=== PATIENT | male | born 1955 | race Caucasian/White ===

== ENCOUNTER 2017-04-28 08:56 | Day surgery (SDC) | payer BC ==
[2017-04-21 17:07] VITALS: BMI 25.7
[~2017-04-28 08:56] MED LIST: LACTATED RINGERS 1,000 ML IV SCH; MOXIFLOXACIN HCL 0.5% DROPS 3 ML BTL OP ONE; ONDANSETRON 4 MG/2 ML VIAL IVP PRN; TETRACAINE 0.5% OPHTH (PF) DROPS 4 ML BTL OP ONE; TIMOLOL 0.5% OPHTH SOLN (PF) 0.2 ML DROPERETTE OP ONE
[2017-04-28 09:21] VITALS: RESP 16; TEMP 98
[2017-04-28] MEDS ORDERED: LIDOCAINE 1% 20 ML VIAL (10MG/ML) FOR IV START INTRADERMA ONE (09:31)
[2017-04-28] MEDS: CYCLOPENTOLATE 1% OPHTH SOLN 2 ML BTL OP ONE ×3 (09:32→09:44)
[2017-04-28] MEDS: PHENYLEPHRINE 2.5% OPHTH DRP 2ML OP NR ×3 (09:35→09:47)
[2017-04-28] MEDS ORDERED: HYALURONATE SODIUM INTRAOCULAR 1 EACH SYRINGE (12MG/ML) INTRAOCULA ONE (10:14)
[2017-04-28] MEDS ORDERED: BALANCED SALT IRRIG SOLN COMB2 15 ML IRRIG.SOLN INTRAOCULA ONE (10:15)
[2017-04-28] MEDS ORDERED: LIDOCAINE 1% (PF) 10MG/ML VIAL SQ ONE (10:15)
[2017-04-28] MEDS ORDERED: fentaNYL (PF) 50 MCG/ML 2 ML AMP ONE (10:24)
[2017-04-28] MEDS ORDERED: MIDAZOLAM 2 MG/2 ML VIAL ONE (10:24)
[2017-04-28] MEDS ORDERED: EPINEPHrine (PF) 0.3 ML in BALANCED SALT IRRIG SOLN COMB2 500 ML IRRIGATION ONE (10:52)
--- NOTE | 2017-04-28 10:56 | P.OP ---
Date of Procedure: 04/28/17 Preoperative Diagnosis: POAG mild stg & NS Postoperative Diagnosis: same Procedure(s) Performed: PIOL & iStent OS Implants: PCB00 20.50 & iStent GTS 100L Anesthesia: MAC Surgeon: Richy Lopez Estimated Blood Loss (ml): 0 Pathology: none sent Condition: stable Disposition: same day Indications for Procedure: blurry vision and glaucoma Operative Findings: no complications
[2017-04-28 11:34] VITALS: BP 105/64; PULSE 60
--- NOTE | 2017-04-28 18:57 | OP ---
OPERATIVE REPORT PROCEDURE: Phacoemulsification of cataract and intraocular lens implant of the left eye with eye stent implantation of the left eye. PREOPERATIVE DIAGNOSIS: Nuclear sclerosis and primary open-angle glaucoma, mild stage. POSTOPERATIVE DIAGNOSES: Nuclear sclerosis and primary open-angle glaucoma, mild stage. SURGEON: Dr. Richy Lopez. ANESTHESIA: Topical. ESTIMATED BLOOD LOSS: None. SPECIMEN TAKEN: None. NARRATIVE: After obtaining the appropriate consent, the patient was brought to the operating room, there he was placed on cardiac monitoring, prepped and draped in the usual sterile manner. He was approached from his left temporal side. At the 5 o'clock position, an MVR blade was used to create a paracentesis port. Through this opening 1% Xylocaine MPF 50/50 mixed with balanced salt solution was injected into the anterior chamber. This was followed by stabilization of the anterior chamber with Viscoat. At the 3 o'clock position, a 2.5 mm keratome was used to create a self- sealing corneal flap incision in Langerman's fashion. Additional Viscoat was placed on the patient's cornea. His head was rotated rotated approximately 45 degrees to his right eye and a [place] prism was placed on the eye to examine the trabecular meshwork. There was no difficulty identifying it. Therefore, a [employer] One[employer] model GTS 100L stent was then passed across the anterior chamber and placed into the trabecular meshwork without difficulty. The patient was then returned to the normal supine position and a cystotome was used to start a continuous tear capsulorrhexis which was completed using the Utrata forceps. Hydrodissection and hydrodelineation of the lens was accomplished with balanced salt solution. Phacoemulsification lens utilizing phaco chop was accomplished 2195 seconds at 7% power. Additional Xylocaine MPF was instilled into the anterior chamber. This was followed by removal of the remaining cortex from the capsular bag along with careful polishing of the posterior capsule. Additional Provisc was used to stabilize the capsular bag and an RAFAELA PCB00, 20.5 diopter posterior chamber intraocular lens was then injected into the capsular bag without difficulty. The remaining viscoelastic was then removed from in and around the intraocular lens as well as the anterior chamber and the eye was brought to normal intraocular pressure through the paracentesis port with balanced salt solution. The incisions were confirmed watertight. He then received 2 drops of 0.5% timolol followed by 2 drops of Vigamox, was then lightly patched and shielded in the usual manner. There were no complications from the procedure. He tolerated the procedure well, was returned to outpatient recovery in good condition. MMCOLETTE / LETITIAN: [id number] /
== END 2017-04-28 11:59 | disposition home or self-care (01) ==
LOC: OR 08:56
PROVIDERS: ATTEND Ophthalmology
DX: H25.12 Age-related nuclear cataract, left eye (principal); H40.1131 Primary open-angle glaucoma, bilateral, mild stage; H53.10 Unspecified subjective visual disturbances; H40.039 Anatomical narrow angle, unspecified eye; H00.029 Hordeolum internum unspecified eye, unspecified eyelid; H52.03 Hypermetropia, bilateral; H52.223 Regular astigmatism, bilateral; H52.4 Presbyopia; Z96.1 Presence of intraocular lens; Z79.899 Other long term (current) drug therapy; Z72.0 Tobacco use
CPT/HCPCS: 0191T; 66984

== ENCOUNTER 2017-08-11 11:27 | Day surgery (SDC) | payer BC ==
[2017-08-04 14:02] VITALS: BMI 25.7
[~2017-08-11 11:27] MED LIST changes: -ONDANSETRON 4 MG/2 ML VIAL IVP PRN; -TIMOLOL 0.5% OPHTH SOLN (PF) 0.2 ML DROPERETTE OP ONE; +prednisoLONE ACETATE 1% OPHTH DROPS 5 ML BTL BOTH EYES ONE
[2017-08-11] MEDS: PILOCARPINE 2% OPHTH DROPS 15 ML BTL OP ONE ×3 (12:25→12:40)
[2017-08-11 12:41] VITALS: RESP 16; TEMP 98.3
[2017-08-11] MEDS ORDERED: LIDOCAINE 1% 20 ML VIAL (10MG/ML) FOR IV START INTRADERMA ONE (12:45)
[2017-08-11] MEDS ORDERED: fentaNYL (PF) 50 MCG/ML 2 ML AMP ONE (14:24)
[2017-08-11] MEDS ORDERED: MIDAZOLAM 2 MG/2 ML VIAL ONE (14:24)
[2017-08-11] MEDS ORDERED: TETRACAINE 0.5% OPHTH (PF) DROPS 4 ML BTL RIGHT EYE ONE (14:34)
[2017-08-11] MEDS ORDERED: LIDOCAINE 1% (PF) 10MG/ML VIAL MISCELLANE ONE (14:42)
[2017-08-11] MEDS ORDERED: ACETYLCHOLINE CHLORIDE 10 MG/ML 2 ML KIT INTRAOCULA ONE (14:49)
[2017-08-11] MEDS ORDERED: FLUORESCEIN STRIPS 1 MG STRIP RIGHT EYE ONE (14:52)
--- NOTE | 2017-08-11 14:59 | P.OP ---
Date of Procedure: 08/11/17 Preoperative Diagnosis: synechia right eye Postoperative Diagnosis: same Procedure(s) Performed: synechyolsis right eye Implants: none Anesthesia: MAC Surgeon: Richy Lopez Estimated Blood Loss (ml): 0 Pathology: none sent Condition: stable Disposition: same day Indications for Procedure: synechyial attachment to cornea Operative Findings: no complications
[2017-08-11 15:26] VITALS: BP 118/75; PULSE 68
--- NOTE | 2017-08-11 21:47 | OP ---
OPERATIVE REPORT DATE OF SURGERY: August 11, 2017. PROCEDURE: Synechiae lysis of the right eye. 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 SURGEONS: Dr. Richy Lopez. ANESTHESIA: Topical. ESTIMATED BLOOD LOSS: Is none. SPECIMEN: Taken none. NARRATIVE: After obtaining the appropriate consent, the patient was brought to the operating room. There he was placed on cardiac monitoring, prepped and draped in the usual sterile manner. In April of 2017, this patient underwent uncomplicated cataract extraction with intraocular lens implantation of his right eye. In June or early July while weaning off of the glaucoma medications, it was identified that there was an attachment of the iris to the internal incision of the patient's cornea from the previous cataract surgery. Because of the long-term concern with uveitis and glaucoma and possible hemorrhage, it was deemed necessary to break this synechiae because it was definitely causing enough tension to cause a peaked pupil in his eye. The patient denied any glare symptoms. However, long-term concerns were paramount. Therefore, he was brought to surgery today to break this point of attachment. He was approached from his right temporal side and at the 11 o'clock position as well as the 4 o'clock position of his eye, an MVR blade was used to create a paracentesis port. Through the 11 o'clock position, Xylocaine MPF 50 50 mix of balanced salt solution was injected into the anterior chamber. Initially using a Sinskey hook to reach across to the synechiae which was approximately 8 o'clock in the eye on the inferior edge of the temporal previously placed temporal incision, the Sinskey hook was then used to free the bound tissue to the underside of the cornea. The approach was taken from both the 5 o'clock position on the patient's cornea as well as the 11 o'clock position. The tissue proved to be somewhat more adherent than anticipated and a small less than 1 mm incision through the original cataract incision was performed to try and free up any tissue from within the wound directly. Between the approach from all 3 areas, the iris was eventually from the cornea. Miochol was instilled into the anterior chamber to bring about pupillary miosis, which proved the pupil to be round at the end of the case. The eye was brought to normal intraocular pressure through the paracentesis port. He then received 2 drops of 0.5% timolol followed by 2 drops of Vigamox and was lightly patched and shielded in the usual manner. There were no complications from the procedure. He tolerated the procedure well, and was returned to outpatient recovery in good condition. JOSEPH / WM: [id number] /
== END 2017-08-11 15:58 | disposition home or self-care (01) ==
LOC: OR 11:27
PROVIDERS: ATTEND Ophthalmology
DX: H21.521 Goniosynechiae, right eye (principal); H40.1131 Primary open-angle glaucoma, bilateral, mild stage; H40.039 Anatomical narrow angle, unspecified eye; H00.029 Hordeolum internum unspecified eye, unspecified eyelid; H52.03 Hypermetropia, bilateral; H52.223 Regular astigmatism, bilateral; H52.4 Presbyopia; Z96.1 Presence of intraocular lens; Z79.899 Other long term (current) drug therapy; F17.210 Nicotine dependence, cigarettes, uncomplicated

== ENCOUNTER → 2020-02-01 | Outpatient (CLI) | payer MEDICARE, BC ==
--- NOTE | 2020-02-01 08:05 | US ---
EXAMINATION TYPE: US duplex aorta DATE OF EXAM: 02/01/2020 COMPARISON: NONE CLINICAL HISTORY: Z13.6 screening for cardiovascular disease. screening EXAM MEASUREMENTS: Abdominal Aorta: Proximal: 2.7 x 2.4cm Mid: 2.3 x 2.1cm Distal: 2.2 x 2.0cm Bifurcation: RT: 0.9 x 0.9cm LT: 1.1 x 1.0cm calcifications noted IMPRESSION: Atheromatous changes without evidence for aneurysm at this time.
== END | disposition home or self-care (01) ==
LOC: RADUSWWP 07:22
PROVIDERS: ATTEND Family Medicine
DX: Z13.6 Encounter for screening for cardiovascular disorders (principal); I70.0 Atherosclerosis of aorta
CPT/HCPCS: 93979

== ENCOUNTER → 2021-03-14 | Outpatient (CLI) | payer MEDICARE, BC ==
[2021-03-14 08:05] LABS: African American GFR (CKD) >90 (>60 ml/min/1.73 sqM); Blood Urea Nitrogen 16 mg/dL (9-20); Non-African American GFR(CKD) >90 (>60 ml/min/1.73 sqM)
--- NOTE | 2021-03-14 10:50 | CT ---
EXAMINATION TYPE: CT angio head neck DATE OF EXAM: 03/14/2021 COMPARISON: None HISTORY: 65-year-old male R42, dizziness and giddiness Dizziness TECHNIQUE: Contiguous axial scanning of the head and neck performed with IV Contrast, patient injecte d with 65 mL of Isovue 370. Coronal/sagittal MIP reconstructions performed. 3-D reconstructions gener ated on a dedicated PET workstation. CT DLP: 350.6 mGycm Automated exposure control for dose reduction was used. FINDINGS: NECK: Emphysematous change in the visualized upper lungs with biapical pleural-parenchymal scarring. Ectati c upper descending thoracic aorta 3.4 cm. Conventional arch was a branching anatomy. The vertebral arteries are codominant and patent throughout their course. The right common and right internal carotid arteries are patent by NASCET criteria. The left common and left internal carotid arteries are patent by NASCET criteria. The proximal left c ommon iliac artery courses posteriorly deep to a distended left internal jugular vein. Calcifications in the bilateral palatine tonsils measuring up to 5 mm suggesting tonsilloliths. HEAD: The vertebral and basilar arteries are also somewhat diminutive in caliber. Remainder of the posterio r circulation is patent. Minimal atherosclerotic calcification within the horizontal petrous segment of the right ICA. Additional mild atherosclerotic narrowing supraclinoid right ICA secondary to eccentric atelectatic c alcification. 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 Mild atherosc lerotic irregularity is present throughout the anterior circulation. Dural venous sinuses are patent. No aneurysmal change is seen. IMPRESSION: NECK: 1. WIDELY PATENT CAROTID AND VERTEBRAL ARTERIES OF THE NECK. HEAD: 2. PATENT BUT RELATIVELY DIMINUTIVE CALIBER TO THE VERTEBRAL AND BASILAR ARTERIES. CORRELATE FOR ANY POTENTIAL SYMPTOMS RELATED TO CHRONIC VERTEBROBASILAR INSUFFICIENCY. 3. SEGMENTAL MILD ATHEROSCLEROTIC NARROWING RIGHT ICA. NO LARGE VESSEL INTRACRANIAL ARTERIAL OCCLUSIO N, SIGNIFICANT STENOSIS, OR ANEURYSMAL CHANGE IS SEEN.
== END | disposition home or self-care (01) ==
LOC: RADCTMAIN 07:15
PROVIDERS: ATTEND Family Medicine
DX: R42 Dizziness and giddiness (principal)
CPT/HCPCS: 82565; 84520; 70496; 70498; 36415; Q9967

== ENCOUNTER → 2023-07-13 | Outpatient (CLI) | payer MEDICARE | END | disposition home or self-care (01) | LOC: LABWHC1 11:08 | PROVIDERS: ATTEND Dentist Periodontics | DX: E55.9 Vitamin D deficiency, unspecified (principal) | CPT/HCPCS: 36415; 82306 ==

== ENCOUNTER → 2023-09-07 | Outpatient (CLI) | payer MEDICARE ==
--- NOTE | 2023-09-07 12:20 | XR ---
EXAMINATION TYPE: XR chest 2V DATE OF EXAM: 09/07/2023 COMPARISON: NONE TECHNIQUE: PA and lateral views submitted. HISTORY: Pain FINDINGS: The lungs are clear and there is no pneumothorax, pleural effusion, or focal pneumonia. Heart size normal and no overt failure. Osseous structures demonstrate hypertrophic and degenerative changes of the spine. Biapical pleural thickening. IMPRESSION: 1. No acute process.
== END | disposition home or self-care (01) ==
LOC: RADXRMAIN 11:43
PROVIDERS: ATTEND Family Medicine
DX: S20.212A Contusion of left front wall of thorax, initial encounter (principal); R07.9 Chest pain, unspecified; X58.XXXA Exposure to other specified factors, initial encounter
CPT/HCPCS: 71046